=== PATIENT | male | born 1955 ===

== ENCOUNTER 2023-12-31 14:46 | Outpatient (CLI) | payer OTHER ==
[2023-12-31 16:12] LABS: ALT/SGPT 36 U/L (12-78); AST/SGOT 29 U/L (15-37)
== END 2023-12-31 14:47 | disposition home or self-care (01) ==
LOC: LAB 14:46
DX: R94.5 Abnormal results of liver function studies (principal)

== ENCOUNTER → 2024-04-13 08:34 | Outpatient (CLI) | payer OTHER ==
[2024-04-13 09:12] LABS: PH,URINE 5.5 (5.0-8.0); URINE APPEARANCE Clear; URINE BILIRRUBIN Negative (NEGATIVE); URINE BLOOD Negative; URINE COLOR Yellow; URINE GLUCOSE Negative (NEGATIVE); URINE KETONE Negative (NEGATIVE); URINE LEUKOCYTE Small; URINE NITRATE Negative; URINE PROTEIN Negative (NEGATIVE); URINE UROBILINOGEN 0.2 E.U./dl
[2024-04-13 09:20] LABS: URINE EPITHELIAL CELLS 2.9 uL (0.0-38.8); URINE RBC 4.7 uL (0.0-20.8); URINE WBC 16.2 uL (0.0-23.2)
[2024-04-13 09:28] LABS: HEMATOCRIT 46.5 % (39.0-48.0); HEMOGLOBIN 15.8 g/dL (13-16.00); MEAN CELL VOLUME 89.9 fL (80.0-100.00); MEAN CORPUSCULAR HEMOGLOBIN 30.5 pg (27.00-32.0); PLATELET COUNT 172 K/uL (150-450); RED BLOOD COUNT 5.17 M/uL (4.00-6.00); RED CELL DISTRIBUTION WIDTH 13.4 % (11.5-14.5)
[2024-04-13 10:23] LABS: ALBUMIN 4.1 gm/dL (3.4-5.0); BILIRUBIN TOTAL 0.89 mg/dL (0.3-1.2); CALCIUM 9.1 mg/dL (8.5-10.1); CHOL HDL RATIO 2.9 (0-5.0); CREATININE SERUM 1.07 mg/dL (0.70-1.30); GFR 68.72; GLOBULINA 3.3 G/DL (2.4-3.5); POTASSIUM 4.32 mEq/L (3.5-5.1); PROSTATIC SPECIFIC ANTIGEN 2.29 NG/ML (0.010-4.00); TOTAL PROTEIN 7.4 gm/dL (6.4-8.2); TSH 2.57 uIU/mL (0.358-3.74)
== END | disposition home or self-care (01) ==
LOC: LAB 08:34
PROVIDERS: ATTEND Internal Medicine
DX: E11.9 Type 2 diabetes mellitus without complications (principal); I10 Essential (primary) hypertension; E78.00 Pure hypercholesterolemia, unspecified; E03.9 Hypothyroidism, unspecified; R97.20 Elevated prostate specific antigen [PSA]; R19.5 Other fecal abnormalities

== ENCOUNTER 2024-04-14 08:38 | Outpatient (CLI) | payer OTHER ==
[2024-04-14 09:14] LABS: ob NEGATIVE (NEGATIVE)
== END 2024-04-14 08:39 | disposition home or self-care (01) ==
LOC: LAB 08:38
PROVIDERS: ATTEND Internal Medicine
DX: E11.9 Type 2 diabetes mellitus without complications (principal); I10 Essential (primary) hypertension; E78.00 Pure hypercholesterolemia, unspecified; E03.9 Hypothyroidism, unspecified; E55.9 Vitamin D deficiency, unspecified; R19.5 Other fecal abnormalities

== ENCOUNTER 2025-02-16 09:07 | Outpatient (CLI) | payer OTHER | END 2025-02-16 09:09 | disposition home or self-care (01) | LOC: MRI 09:07 | DX: M25.569 Pain in unspecified knee (principal) | CPT/HCPCS: 73721 ==